=== PATIENT | male | born 1955 | race Caucasian/White ===

== ENCOUNTER → 2020-08-02 11:40 | Outpatient (BNVA) | payer OTHER, SELFPAY | PROVIDERS: PCP Internal Medicine; Visit Provider Anesthesiology | DX: G89.4 Chronic pain syndrome (principal); M96.1 Postlaminectomy syndrome, not elsewhere classified; M48.061 Spinal stenosis, lumbar region without neurogenic claudication; Z79.891 Long term (current) use of opiate analgesic | CPT/HCPCS: 99213; 99214 ==

== ENCOUNTER → 2020-08-30 16:21 | Outpatient (BNVA) | payer OTHER, SELFPAY | PROVIDERS: PCP Internal Medicine; Visit Provider Anesthesiology | DX: G89.4 Chronic pain syndrome (principal); M48.061 Spinal stenosis, lumbar region without neurogenic claudication; M96.1 Postlaminectomy syndrome, not elsewhere classified; Z79.891 Long term (current) use of opiate analgesic | CPT/HCPCS: 99212 ==

== ENCOUNTER → 2020-09-28 10:30 | Outpatient (BNVA) | payer OTHER, SELFPAY | PROVIDERS: PCP Internal Medicine; Visit Provider Anesthesiology | DX: M48.00 Spinal stenosis, site unspecified (principal); M48.061 Spinal stenosis, lumbar region without neurogenic claudication; M96.1 Postlaminectomy syndrome, not elsewhere classified; G89.4 Chronic pain syndrome; F11.90 Opioid use, unspecified, uncomplicated; F17.210 Nicotine dependence, cigarettes, uncomplicated | CPT/HCPCS: 99212 ==

== ENCOUNTER 2020-09-29 07:52 | Day surgery (SDC) | payer OTHER, SELFPAY ==
[2020-09-26 15:01] VITALS: BMI 31.8
--- NOTE | 2020-09-28 12:21 | P.CONAN_ITS ---
Documented by User: Lula Sequeira 09/28/20 12:23 HPI - Anesthesia Eval Consult details Narrative: 65yo M for Lumbar Spinal Cord Simulation Trial [facility] Past Medical History Medical History Back pain with history of spinal surgery Chronic pain syndrome Chronic, continuous use of opioids Numbness and tingling in both hands Postlaminectomy syndrome Spinal stenosis Social History Social History Alcohol intake: current Alcohol intake frequency: a few times a month Alcohol type: beer Smoking Status: Current every day smoker Cigarettes Per Day: 30 Years Smoked: 35 Advance Directives: No Advance Directives Information Provided: No Advance Directives on File: No Meds Allergies Allergy/AdvReac Type Severity Reaction Status Date / Time No Known Allergies Allergy Verified 09/28/20 11:04 Home Medications Medication Instructions Recorded Confirmed Type amlodipine 10 mg tablet 10 mg PO DAILY 08/02/20 09/28/20 History benazepril 20 mg tablet 20 mg PO DAILY 08/02/20 09/28/20 History chlorthalidone 25 mg tablet 25 mg PO DAILY 08/02/20 09/28/20 History metformin 1,000 mg tablet 1,000 mg PO BID 08/02/20 09/28/20 History duloxetine 30 mg capsule,delayed 30 mg PO DAILY PRN 08/30/20 09/28/20 History release Exam Exam Date and Time: September 28, 2020 1221 Height,Weight and Vital Signs: Height 5 ft 11 in Weight 103.419 kg Assessment and Plan Assessment Anesthesia Assessment: Chart Reviewed Documented by User: Vignesh García MD 09/29/20 09:50 [facility] Past Medical History Medical History Back pain with history of spinal surgery Chronic pain syndrome Chronic, continuous use of opioids Numbness and tingling in both hands Postlaminectomy syndrome Spinal stenosis Social History Social History Alcohol intake: current Alcohol intake frequency: a few times a month Alcohol type: beer Smoking Status: Current every day smoker Cigarettes Per Day: 30 Years Smoked: 35 Advance Directives: No Advance Directives Information Provided: No Advance Directives on File: No Meds Allergies Allergy/AdvReac Type Severity Reaction Status Date / Time No Known Allergies Allergy Verified 09/28/20 11:04 Home Medications Medication Instructions Recorded Confirmed Type amlodipine 10 mg tablet 10 mg PO DAILY 08/02/20 09/28/20 History benazepril 20 mg tablet 20 mg PO DAILY 08/02/20 09/28/20 History chlorthalidone 25 mg tablet 25 mg PO DAILY 08/02/20 09/28/20 History metformin 1,000 mg tablet 1,000 mg PO BID 08/02/20 09/28/20 History duloxetine 30 mg capsule,delayed 30 mg PO DAILY PRN 08/30/20 09/28/20 History release Exam Airway Mallampati Class: II TM Dist: >3cm Neck ROM: Full Loose/Missing/Broken Teeth: Yes Heart: ST Lungs: reduced basilar breath sounds Other: ao Assessment and Plan Assessment Anesthesia Assessment: Anesthesia Plan Discussed and Chart Reviewed Final Anesthetic Review NPO: Yes ASA Class: III Final Preanesthetic Review: No Changes in Pt Med Stat, Meds/Allgs Chart Reviewed, Consent Obtained/Reviewed and Anes Risks/Benef Reviewed Patient Risk: Intermediate Procedure Risk: Low Anesthetic Plan Anesthetic Plan: MAC: Disposition: Standard PACU
[2020-09-29 08:03] VITALS: BP 147/88; PULSE 112; RESP 20; TEMP 37; O2SAT 97
[2020-09-29] MEDS: ceFAZolin Sodium/Dextrose,Iso 2 GM/50 ML PIGGYBACK IV (08:34)
[2020-09-29 08:35] LABS: Glucose, Whole Blood 206 mg/dL (60-115)
[2020-09-29] MEDS: Lactated Ringers 1,000 ML 100 ML IVCONT (08:35)
--- NOTE | 2020-09-29 09:15 | FL_ITS ---
EXAMINATION: XR FLUOROSCOPY WITH IMAGES CLINICAL INFORMATION: Spinal stimulator trial COMPARISON: None. TECHNIQUE: Fluoroscopy performed by Dr. Alfredo Bertrand. Fluoroscopy time: 3.9 minutes DAP: 1.40 mGycm2 Images: 4 FINDINGS: There are posterior pleural spinal electrodes inserted from the T12-L1 disc level in the posterior pleural space. The electrodes overlie the lower thoracic spine. Visualized vertebral heights and alignment is normal. There is moderate lateral spondylosis and loss of disc height at T11-T12 disc level. FL/FL guidance in OR IMPRESSION: Fluoroscopy was provided to Dr. Alfredo Bertrand for spinal stimulator trial.
--- NOTE | 2020-09-29 09:21 | MHC.SHP ---
Pre-Procedural Eval Section A The patient is an INPATIENT: No The History & Physical has been completed within 30 days and I have reviewed it.: No Section B Chief Complaint: Lumbar Post Laminectomy Syndrome Details of Present Illness: postlaminectomy stndrome Relevant Family History (Specify if Yes): No Relevant Social History: None Present Medications: see Short Stay Collaborative assessment Medical History: No relevant PMH History of Previous Operations: Relevant previous surgery/procedure and date(s) Allergies: Allergies Allergy/AdvReac Type Severity Reaction Status Date / Time No Known Allergies Allergy Verified 09/28/20 11:04 Review of Systems Sugical H&P ROS: Negative: Constitution, Cardiovascular, Respiratory, Neurological, Psychiatric, Hem-Onc, Allergic/Immunologic, Gastrointestinal, Genitourinary, Musculoskeletal, Integumentary, Endocrine and Eyes/Ears/Nose/Throat Exam Surgical H&P Exam: Normal: HEENT, Normal: Heart, Normal: Lungs, Normal: Extremities, Normal: Abdomen, Normal: Skin and Normal: Neurological Plan Diagnosis/Plan: Unchanged Patient has been examined and remains a candidate for the planned procedure
[2020-09-29 10:55] VITALS: BP 160/90; PULSE 113; RESP 20; TEMP 37.1; O2SAT 93
[2020-09-29 11:10] VITALS: BP 146/89; PULSE 107; RESP 18; O2SAT 100
[2020-09-29] MEDS: Acetaminophen 325 MG TABLET 975 MG PO (11:15)
[2020-09-29 11:25] VITALS: BP 157/92; PULSE 101; RESP 18; O2SAT 100
--- NOTE | 2020-09-29 16:12 | W.PM.OPN ---
Operative Note Operative Note Date of Service: 09/29/20 Narrative: Narrative: Mr Dempsey is very pleasant 65 years old man who came today into the operating room for trial of spinal cord stimulator for the treatment of post laminectomy syndrome. Preoperatively the patient received 2 grams of Cefasoline approximately 30 minutes before procedure. After obtaining informed consent patient was brought to the operating room, HE was positioned prone on operating table, [place] [employer] monitors were applied and patient was deeply sedated. Time-out was performed delineating correct site, side, the nature of the procedure, patient's allergy, preoperative antibiotic if needed. All operating room staff was participating in OR time-out procedure. Patient's entire back was prepped with ChloraPrep twice and draped with full body laparoscopy drape. Sterilely draped C-arm was brought over operating field and square picture of T11-T12 L1 L2 vertebrae as were demonstrated on the screen. Attention FIRST was concentrated on the L1-L2 epidural interspace. The location of the projection of the right pedicle center of the L3 vertebra was found on the skin using C-arm. This location was injected with mixture of lidocaine 2% and Marcaine 0.5% 5 cc. After that 11 blade was used to make a perla on the skin. 10 cm 14 gauge Tuohy introducer epidural needle was inserted through the perla and advanced to L1-L2 epidural interspace. The advancement of the needle was performed on anterior posterior and lateral views. Guitar wire and loss of resistance technique were used to locate epidural space. When guitar wire was spread in the epidural fashion, epidural lead was inserted through the skin and it was advanced to T8 position SLIGHTLY RIGHT to THE MIDLINE. After that location of the projection of the LEFT pedicle center of the vertebra was found on the skin using C-arm. This location was injected with mixture of lidocaine 2% and Marcaine 0.5% 5 cc. After that 11 blade was used to make a perla on the skin. 10 cm 14 gaugeTuohy introducer epidural needle was inserted through the perla and advanced toL1-L2 epidural interspace. The advancement of the needle was performed on anterior posterior and lateral views. Guitar wire and loss of resistance technique were used to locate epidural space. When guitar wire was spread in the epidural fashion, epidural lead was inserted through the needle and attempt was made to advance it to the epidural space.This maneuver was proven to be difficult and the Touhy needle was removed and replaced with the blue epidural introducer. After that advancement of the epidural lead went is here and I was able to advance it to the T8 epidural space slightly left to the midline. At this moment patient was awaken and the epidural leads were connected to the testing device. The patient reported stimulation corresponding to his pain. After satisfactory position of the leads were established the needles were withdrawn, the stylette wires were removed from the epidural leads. The anchoring devices were dislodged on the leads and advanced to the level of the skin. The anchoring devices were sutured with two 0-0 silk sutures to the skin of the patient. The leads were connected to testing device. Bacitracin ointment was applied to the entrance point of bilateral needles. Sterile dressing was applied to the patient's back. The testing device was also glued to the patient's back. Upon completion of the procedure the patient was taken to PACU where HE recovered and UNEVENTFULLY, HE WENT HOME WITHOUT IMMEDIATE COMPLICATIONS. The patient will be given prescription for small dose Percocets for postoperative pain control , he will continue to use ANTIBIOTICS:Keflex for the next 6 days while she is on the trial.
== END 2020-09-29 11:47 | disposition home or self-care (01) ==
PROVIDERS: PCP Internal Medicine; Visit Provider Anesthesiology
PROC: (CPT 63650; principal; 2020-09-29 09:10)
DX: M96.1 Postlaminectomy syndrome, not elsewhere classified (principal); G89.4 Chronic pain syndrome; M48.061 Spinal stenosis, lumbar region without neurogenic claudication; G83.4 Cauda equina syndrome; F11.90 Opioid use, unspecified, uncomplicated; Z79.899 Other long term (current) drug therapy
CPT/HCPCS: 63650 ×2; 82947; C1778; C1897; J0690; J2250

== ENCOUNTER → 2020-10-05 13:20 | Outpatient (BNVA) | payer OTHER, SELFPAY | PROVIDERS: PCP Internal Medicine; Referring Provider Internal Medicine; Visit Provider Anesthesiology | DX: M48.061 Spinal stenosis, lumbar region without neurogenic claudication (principal); M96.1 Postlaminectomy syndrome, not elsewhere classified; G89.4 Chronic pain syndrome; F11.90 Opioid use, unspecified, uncomplicated; F17.210 Nicotine dependence, cigarettes, uncomplicated | CPT/HCPCS: 99212 ==

== ENCOUNTER → 2020-10-25 08:01 | Outpatient (BNVA) | payer OTHER, SELFPAY | PROVIDERS: PCP Internal Medicine; Visit Provider Anesthesiology | DX: M48.061 Spinal stenosis, lumbar region without neurogenic claudication (principal); M96.1 Postlaminectomy syndrome, not elsewhere classified; G89.4 Chronic pain syndrome; F11.90 Opioid use, unspecified, uncomplicated | CPT/HCPCS: 99212 ==

== ENCOUNTER → 2020-11-23 10:27 | Outpatient (BNVA) | payer OTHER, SELFPAY | PROVIDERS: PCP Internal Medicine; Visit Provider Anesthesiology | DX: M48.061 Spinal stenosis, lumbar region without neurogenic claudication (principal); M96.1 Postlaminectomy syndrome, not elsewhere classified; G89.4 Chronic pain syndrome; F11.90 Opioid use, unspecified, uncomplicated | CPT/HCPCS: 99212 ==

== ENCOUNTER → 2020-12-21 08:39 | Outpatient (BNVA) | payer OTHER, SELFPAY | PROVIDERS: PCP Internal Medicine; Visit Provider Anesthesiology | DX: M48.061 Spinal stenosis, lumbar region without neurogenic claudication (principal); M96.1 Postlaminectomy syndrome, not elsewhere classified; G89.4 Chronic pain syndrome; F11.90 Opioid use, unspecified, uncomplicated; Z79.899 Other long term (current) drug therapy | CPT/HCPCS: 99212 ==

== ENCOUNTER → 2021-01-17 10:26 | Outpatient (BNVA) | payer OTHER, SELFPAY | PROVIDERS: PCP Internal Medicine; Visit Provider Anesthesiology | DX: M48.061 Spinal stenosis, lumbar region without neurogenic claudication (principal); M96.1 Postlaminectomy syndrome, not elsewhere classified; G89.4 Chronic pain syndrome; F11.90 Opioid use, unspecified, uncomplicated | CPT/HCPCS: 99212 ==

== ENCOUNTER → 2021-02-12 08:41 | Outpatient (BNVA) | payer OTHER, SELFPAY | PROVIDERS: PCP Internal Medicine; Visit Provider Anesthesiology | DX: M48.061 Spinal stenosis, lumbar region without neurogenic claudication (principal); M96.1 Postlaminectomy syndrome, not elsewhere classified; G89.4 Chronic pain syndrome; F11.90 Opioid use, unspecified, uncomplicated | CPT/HCPCS: 99212 ==

== ENCOUNTER 2021-02-16 08:46 | Day surgery (SDC) | payer OTHER, SELFPAY ==
--- NOTE | 2021-02-15 12:06 | HO.ANESPROP2 ---
Documented by User: Lula Sequeira 02/15/21 12:07 HPI - Anesthesia Eval Consult details Narrative: 65yo M for Lumbar Spinal Stimulation Implant s/p Lumbar Spinal Stimulation Trial with MAC 09/2020 PRN opioids daily PMFSH Active Problems Active Problems: All Active Problems (Updated 09/26/20 @ 14:58 by Lisa Kirkland) Chronic, continuous use of opioids (Acute) Chronic pain syndrome (Acute) Postlaminectomy syndrome (Acute) Spinal stenosis (Acute) Past Medical History Medical History Back pain with history of spinal surgery Chronic pain syndrome Chronic, continuous use of opioids Diabetes Heavy smoker HTN (hypertension) Numbness and tingling in both hands Postlaminectomy syndrome Spinal stenosis Social History Social History Alcohol intake: current Alcohol intake frequency: a few times a week Alcohol type: beer Smoking Status: Heavy tobacco smoker Cigarettes Per Day: 30 Years Smoked: 50 Smoked in Last 30 Days: Yes Advance Directives: No Advance Directives Information Provided: Yes Meds Allergies Allergy/AdvReac Type Severity Reaction Status Date / Time No Known Allergies Allergy Verified 01/17/21 10:41 Home Medications Medication Instructions Recorded Confirmed Last Taken Type amlodipine 10 mg tablet 10 mg PO DAILY 08/02/20 02/12/21 02/16/21 History benazepril 20 mg tablet 20 mg PO DAILY 08/02/20 02/12/21 02/16/21 History chlorthalidone 25 mg tablet 25 mg PO DAILY 08/02/20 02/12/21 02/16/21 History metformin 1,000 mg tablet 1,000 mg PO BID 08/02/20 02/12/21 02/16/21 History duloxetine 30 mg capsule,delayed 30 mg PO DAILY PRN 08/30/20 02/12/21 Unknown History release Exam Exam Date and Time: February 15, 20211205 Assessment and Plan Assessment Anesthesia Assessment: Chart Reviewed Documented by User: Tricia Cuello 02/16/21 10:03 [facility] Past Medical History Medical History Back pain with history of spinal surgery Chronic pain syndrome Chronic, continuous use of opioids Diabetes Heavy smoker HTN (hypertension) Numbness and tingling in both hands Postlaminectomy syndrome Spinal stenosis Family History Family history of problems with anesthesia: No Surgical History History of Problems with Anesthesia: No Social History Social History Alcohol intake: current Alcohol intake frequency: a few times a week Alcohol type: beer Smoking Status: Heavy tobacco smoker Cigarettes Per Day: 30 Years Smoked: 50 Smoked in Last 30 Days: Yes Advance Directives: No Advance Directives Information Provided: Yes Meds Allergies Allergy/AdvReac Type Severity Reaction Status Date / Time No Known Allergies Allergy Verified 01/17/21 10:41 Home Medications Medication Instructions Recorded Confirmed Last Taken Type amlodipine 10 mg tablet 10 mg PO DAILY 08/02/20 02/12/21 02/16/21 History benazepril 20 mg tablet 20 mg PO DAILY 08/02/20 02/12/21 02/16/21 History chlorthalidone 25 mg tablet 25 mg PO DAILY 08/02/20 02/12/21 02/16/21 History metformin 1,000 mg tablet 1,000 mg PO BID 08/02/20 02/12/21 02/16/21 History duloxetine 30 mg capsule,delayed 30 mg PO DAILY PRN 08/30/20 02/12/21 Unknown History release Exam Height,Weight and Vital Signs: Vital Signs Temp Pulse Resp BP Pulse Ox 02/16/21 09:39 104 H 02/16/21 09:36 98.6 F 107 H 16 122/90 H 91 L Lab Results 02/16/21 Range/Units 09:06 POC Glucose 181 H (60-115) mg/dL Narrative Narrative: Patient wheezy on initial exam. Respiratory treatment ordered. Airway Mallampati Class: II TM Dist: >3cm Neck ROM: Full Loose/Missing/Broken Teeth: Yes (Broken) Heart: RRR Lungs: CTAB Assessment and Plan Assessment Anesthesia Assessment: Anesthesia Plan Discussed and Chart Reviewed Final Anesthetic Review NPO: Yes ASA Class: III Final Preanesthetic Review: No Changes in Pt Med Stat, Meds/Allgs Chart Reviewed, Consent Obtained/Reviewed and Anes Risks/Benef Reviewed Patient Risk: Intermediate Procedure Risk: Low Assessment/Block/Sedation in SS: Assess/Block/Sedation-SS Anesthetic Plan Anesthetic Plan: MAC: Disposition: Standard PACU
--- NOTE | ~2021-02-16 | FL_ITS ---
EXAMINATION: XR FLUOROSCOPY WITH IMAGES CLINICAL INFORMATION: Lumbar spinal stimulator implant TECHNIQUE: Fluoroscopy performed by Dr. Bertrand. Fluoroscopy time: 3 minutes DAP: 78.1 mGycm2 Images: 3 FINDINGS: Intraoperative fluoroscopy was provided for use by Dr. Bertrand. A radiologist was not present during imaging. On the images, spinal stimulator leads are projected in the region of the thoracic spine. Today's dictation is only for administrative purposes to document intraoperative fluoroscopy. FL/FL guidance in OR IMPRESSION: Intraoperative fluoroscopy provided for use by Dr. Bertrand. Please see procedure note for details findings.
[2021-02-16 09:09] LABS: Glucose, Whole Blood 181 mg/dL (60-115)
[2021-02-16 09:32] VITALS: BMI 31.1
[2021-02-16 09:36] VITALS: BP 122/90; PULSE 107; RESP 16; TEMP 37; O2SAT 91
[2021-02-16 09:39] VITALS: PULSE 104; O2SAT 97
[2021-02-16] MEDS: Albuterol Sulfate (0.083%) 2.5 MG/3 ML VIAL.NEB INHALE (09:39)
[2021-02-16] MEDS: Lactated Ringers 1,000 ML 100 ML IVCONT (09:55)
[2021-02-16 10:40] VITALS: O2SAT 98
--- NOTE | 2021-02-16 10:43 | P.HPSUR_ITS ---
Pre-Procedural Eval Section A The patient is an INPATIENT: No Changes since office visit: Yes Patient answered all questions The History & Physical has been completed within 30 days and I have reviewed it.: No Section B Chief Complaint: Spinal Stenosis w/ Neurogenic Claudication status Details of Present Illness: as above Relevant Family History (Specify if Yes): No Relevant Social History: None Present Medications: see Short Stay Collaborative assessment Medical History: No relevant PMH History of Previous Operations: Relevant previous surgery/procedure and date(s) Allergies: Allergies Allergy/AdvReac Type Severity Reaction Status Date / Time No Known Allergies Allergy Verified 01/17/21 10:41 Review of Systems Sugical H&P ROS: Negative: Constitution, Cardiovascular, Respiratory, Neurological, Psychiatric, Hem-Onc, Allergic/Immunologic, Gastrointestinal, Genitourinary, Musculoskeletal, Integumentary, Endocrine and Eyes/Ears/ Nose/Throat Exam Surgical H&P Exam: Normal: HEENT, Normal: Heart, Normal: Lungs, Normal: Extremities, Normal: Abdomen, Normal: Skin and Normal: Neurological Plan Diagnosis/Plan: Unchanged I have reviewed the history and physical and performed a pertinent physical examination on my patient. No changes have occurred unless specified.
--- NOTE | 2021-02-16 10:43 | PM.OP ---
Brief Operative Note Date of Service: 02/16/21 Pre-op diagnosis: Moderate to severe spinal stenosis, spondylosis of lumbar spine. Post-op diagnosis: same Procedure: Implantation of spinal cord stimulator [employer]. Implants: To epidural leads, alpha [employer] battery Surgeon: Alfredo Bertrand MD Anesthesia: MAC Estimated blood loss (mL): 20 Pathology: none sent Condition: stable Disposition: PACU
--- NOTE | 2021-02-16 10:45 | P.OP_ITS ---
Operative Note Operative Note Date of Service: 02/16/21 Narrative: Mr. Dempsey is very pleasant 51 years old gentleman who came today into the operating room for implantation of spinal cord stimulator for the treatment of pain related to degenerative disc disease and chronic pain syndrome. He had successful trial of spinal cord stimulation. Preoperatively patient received 2 g cefazolin _approximately 30 minutes before the procedure. After obtaining informed consent patient was brought to the operating room, he was positioned prone on operating table, [place] [employer] monitors were applied and patient was deeply sedated. Time-out was performed delineating correct site, side, the nature of the procedure, patient's allergy, preoperative antibiotic. All operating room staff was participating in OR time-out procedure. Patient's entire back was prepped with ChloraPrep twice and draped with full body drape including Ioban film. Sterilely draped C-arm was brought over operating field and square picture of T12, L1, L2 vertebrae as were demonstrated on the screen. THE PROJECTION OF L2-L3 SPINAL PROCESSES TO THE SKIN WERE INFILTRATED WITH LIDOCAINE 2% MIXED WITH BUPIVACAINE 0.5%. Six CM LONG VERTICAL INCISION using a 10 blade scalpel WAS PERFORMED IN STRICT MIDLINE VERTICAL FASHION. THOROUGH HEMOSTASIS WAS PERFORMED using electrocautery.. Thorough tissue dissections was performed until prevertebral fascia was freed from overlying tissues. Attention FIRST was concentrated on the RIGHT T12-L1 epidural interspace. The location of the projection of the right pedicle center of the L2 vertebra was found on the prevertebral fascia using C-arm. This location was injected with mixture of lidocaine 2% and Marcaine 0.5% 5 cc in approximate direction of needle advancement.. After that 10 cm 14 gauge straight introducer epidural needle was inserted through the fascia and advanced toward T12-L1 epidural interspace. The advancement of the needle was performed on anterior posterior and lateral views. Guitar wire and loss of resistance technique were used to locate epidural space. When guitar wire was spread in the epidural fashion, epidural lead was inserted through the skin and it was advanced to T8 position POSTERIOR EPIDURAL SPACE practically to the midline. After that location of the projection of the LEFT pedicle center of the L3 vertebra was found -using C-arm. This location was injected with mixture of lidocaine 2% and Marcaine 0.5% 5 cc.. . 10 cm 14 gauge curved introducer epidural needle was inserted through the fascia and advanced to T12-L1 epidural interspace. The advancement of the needle was performed on anterior posterior and lateral views. Guitar wire and loss of resistance technique were used to locate epidural space. When guitar wire was spread in the epidural fashion, epidural lead was inserted through the needle and advanced to the T9 POSTERIOR EPIDURAL SPACE SLIGHTLY left to the existing line .. THE LOCATION OF BOTH LEADS WAS VERIFIED ON ANTERIOR POSTERIOR AND LATERAL VIEWS. At this moment the patient was awaken and testing was performed. The patient responded well with both locations of the epidural leads. He reported stimulation in the projection of the . It corresponding to his pain. After satisfactory position of the leads were established the needles were withdrawn, the stylette wires were removed from the epidural leads. The anchoring devices were dislodged on the leads and advanced to the level of the skin. The anchoring devices were advanced along the epidural leads and dislodged and epidural leads at the level of prevertebral fascia. They were sutured to prevertebral fascia using special suturing device from [employer] per each anchoring device. The fixating screws was fixed until 3 clicks were heard on each anchoring device. After that the wound was irrigated with copious amount of Vancomycin containing normal saline and packed with Vancomycin soaked 4 x 4. After that attention was concentrated on the right upper buttock of the patient where he wanted battery to be implanted. 6 cm long horizontal incision was performed 3 cm below the lowest portion of the right iliac crest. Subcutaneous pocket was formed not deeper than 2 cm under the skin using dull dissection and electrocautery dissection. Thorough hemostasis was obtained. The wound was irrigated with copious amount of Vancomycin contained normal saline. Tunneling device was used to connect the 2 wounds and epidural leads were dislodged into side wound. They were connected to the [employer] battery and locked with a locking screwdriver device. Impedance was checked and appeared to be satisfactory. After that the anchoring sutures ethibond were applied in the most superior medial and most superior lateral corners of the wound. After that they were connected to the anchoring holes on the body of the battery, the epidural leads were gathered behind the body of the-battery, the battery and the leads were inserted into the pocket wound and after that the anchoring 2 sutures were tied. The wounds were irrigated again with Vancomycin containing normal saline, thorough hemostasis was checked, and after that the wounds were closed using 0 Vicryl. After that the skin edges wore approximated using 2 0 Vicryl, lili were applied to the wounds at the level of the skin. Bacitracin ointment was applies to the level of the lili and sterile dressings were applied to the staple lines. Medipore Tape was applied to hold the dressing to the patient's skin. Abdominal binder to wear was provided to the patient. At this moment patient was awaken and transferred to the bed. He was recovering uneventfully in PACU.
[2021-02-16 13:17] VITALS: BP 132/81; PULSE 91; RESP 12; TEMP 36.6; O2SAT 92
[2021-02-16 13:32] VITALS: BP 131/82; PULSE 79; RESP 18; TEMP 36.6; O2SAT 96
== END 2021-02-16 15:03 | disposition home or self-care (01) ==
LOC: HO.SSS 08:46
PROVIDERS: PCP Internal Medicine; Visit Provider Anesthesiology
PROC: (CPT 63685; principal; 2021-02-16 09:50)
DX: M48.061 Spinal stenosis, lumbar region without neurogenic claudication (principal); M51.36 Other intervertebral disc degeneration, lumbar region; M96.1 Postlaminectomy syndrome, not elsewhere classified; G89.4 Chronic pain syndrome; Z79.891 Long term (current) use of opiate analgesic; I10 Essential (primary) hypertension; E11.9 Type 2 diabetes mellitus without complications; Z79.84 Long term (current) use of oral hypoglycemic drugs; Z79.899 Other long term (current) drug therapy; F17.210 Nicotine dependence, cigarettes, uncomplicated
CPT/HCPCS: 63685; 63650 ×2; 82947; 94640; C1713; C1778; C1787; C1820; J0690; J1100; J2250; J2370; J2405; J3010; J3370

== ENCOUNTER → 2021-02-22 11:25 | Outpatient (BNVA) | payer OTHER, SELFPAY | PROVIDERS: PCP Internal Medicine; Visit Provider Anesthesiology | DX: M48.061 Spinal stenosis, lumbar region without neurogenic claudication (principal); M96.1 Postlaminectomy syndrome, not elsewhere classified; G89.4 Chronic pain syndrome; F11.90 Opioid use, unspecified, uncomplicated | CPT/HCPCS: 99212 ==

== ENCOUNTER → 2021-03-01 11:01 | Outpatient (BNVA) | payer OTHER, SELFPAY | PROVIDERS: PCP Internal Medicine; Visit Provider Anesthesiology | DX: M48.061 Spinal stenosis, lumbar region without neurogenic claudication (principal); M96.1 Postlaminectomy syndrome, not elsewhere classified; G89.4 Chronic pain syndrome; F11.90 Opioid use, unspecified, uncomplicated | CPT/HCPCS: 99212 ==

== ENCOUNTER → 2021-03-21 10:41 | Outpatient (BNVA) | payer OTHER, SELFPAY | PROVIDERS: PCP Internal Medicine; Visit Provider Anesthesiology | DX: M48.061 Spinal stenosis, lumbar region without neurogenic claudication (principal); M96.1 Postlaminectomy syndrome, not elsewhere classified; G89.4 Chronic pain syndrome; F11.90 Opioid use, unspecified, uncomplicated; Z79.899 Other long term (current) drug therapy | CPT/HCPCS: 99212 ==

== ENCOUNTER → 2021-04-19 09:41 | Outpatient (BNVA) | payer OTHER, SELFPAY | PROVIDERS: Visit Provider Anesthesiology | DX: M48.061 Spinal stenosis, lumbar region without neurogenic claudication (principal); M96.1 Postlaminectomy syndrome, not elsewhere classified; G89.4 Chronic pain syndrome; F11.90 Opioid use, unspecified, uncomplicated | CPT/HCPCS: 99212 ==

== ENCOUNTER → 2021-05-18 09:01 | Outpatient (BNVA) | payer OTHER, SELFPAY | PROVIDERS: Visit Provider Nurse Practitioner Family | DX: M48.061 Spinal stenosis, lumbar region without neurogenic claudication (principal); M96.1 Postlaminectomy syndrome, not elsewhere classified; G89.4 Chronic pain syndrome; F11.90 Opioid use, unspecified, uncomplicated | CPT/HCPCS: 99212 ==

== ENCOUNTER → 2021-06-20 09:47 | Outpatient (BNVA) | payer OTHER, SELFPAY | PROVIDERS: PCP Internal Medicine; Visit Provider Anesthesiology | DX: M48.061 Spinal stenosis, lumbar region without neurogenic claudication (principal); M96.1 Postlaminectomy syndrome, not elsewhere classified; G89.4 Chronic pain syndrome; F11.90 Opioid use, unspecified, uncomplicated; Z79.899 Other long term (current) drug therapy | CPT/HCPCS: 99212 ==

== ENCOUNTER → 2021-07-18 10:12 | Outpatient (BNVA) | payer OTHER, SELFPAY | PROVIDERS: PCP Internal Medicine; Visit Provider Anesthesiology | DX: Z51.81 Encounter for therapeutic drug level monitoring (principal); M48.061 Spinal stenosis, lumbar region without neurogenic claudication; M96.1 Postlaminectomy syndrome, not elsewhere classified; G89.4 Chronic pain syndrome; F11.90 Opioid use, unspecified, uncomplicated | CPT/HCPCS: 99212 ==

== ENCOUNTER → 2021-08-29 09:53 | Outpatient (BNVA) | payer OTHER, SELFPAY | PROVIDERS: PCP Internal Medicine; Visit Provider Anesthesiology | DX: Z51.81 Encounter for therapeutic drug level monitoring (principal); M48.061 Spinal stenosis, lumbar region without neurogenic claudication; M96.1 Postlaminectomy syndrome, not elsewhere classified; G89.4 Chronic pain syndrome; F11.90 Opioid use, unspecified, uncomplicated | CPT/HCPCS: 99212 ==

== ENCOUNTER → 2021-09-26 09:01 | Outpatient (BNVA) | payer OTHER, SELFPAY | PROVIDERS: PCP Internal Medicine; Visit Provider Anesthesiology | DX: Z51.81 Encounter for therapeutic drug level monitoring (principal); M48.061 Spinal stenosis, lumbar region without neurogenic claudication; M96.1 Postlaminectomy syndrome, not elsewhere classified; G89.4 Chronic pain syndrome; F11.20 Opioid dependence, uncomplicated | CPT/HCPCS: 99212 ==

== ENCOUNTER → 2021-10-25 10:45 | Outpatient (BNVA) | payer OTHER, SELFPAY | PROVIDERS: PCP Internal Medicine; Visit Provider Anesthesiology | DX: Z51.81 Encounter for therapeutic drug level monitoring (principal); M48.061 Spinal stenosis, lumbar region without neurogenic claudication; M96.1 Postlaminectomy syndrome, not elsewhere classified; G89.4 Chronic pain syndrome; F11.20 Opioid dependence, uncomplicated | CPT/HCPCS: 99212 ==

== ENCOUNTER → 2021-11-22 10:15 | Outpatient (BNVA) | payer OTHER, SELFPAY | PROVIDERS: PCP Internal Medicine; Visit Provider Anesthesiology | DX: Z51.81 Encounter for therapeutic drug level monitoring (principal); F11.20 Opioid dependence, uncomplicated | CPT/HCPCS: 99212 ==

== ENCOUNTER → 2021-12-19 08:44 | Outpatient (BNVA) | payer OTHER, SELFPAY | PROVIDERS: PCP Internal Medicine; Visit Provider Anesthesiology | DX: M96.1 Postlaminectomy syndrome, not elsewhere classified (principal); M48.061 Spinal stenosis, lumbar region without neurogenic claudication; G89.4 Chronic pain syndrome; G83.4 Cauda equina syndrome; E11.9 Type 2 diabetes mellitus without complications; I10 Essential (primary) hypertension; F17.210 Nicotine dependence, cigarettes, uncomplicated; F11.90 Opioid use, unspecified, uncomplicated; Z96.82 Presence of neurostimulator | CPT/HCPCS: 99212 ==

== ENCOUNTER → 2022-01-23 10:21 | Outpatient (BNVA) | payer OTHER, SELFPAY | PROVIDERS: PCP Internal Medicine; Visit Provider Anesthesiology | DX: Z51.81 Encounter for therapeutic drug level monitoring (principal); F11.20 Opioid dependence, uncomplicated | CPT/HCPCS: 99211 ==

== ENCOUNTER → 2022-02-20 10:12 | Outpatient (BNVA) | payer OTHER, SELFPAY | PROVIDERS: PCP Internal Medicine; Visit Provider Anesthesiology | DX: Z13.89 Encounter for screening for other disorder (principal) ==

== ENCOUNTER → 2022-03-26 12:37 | Outpatient (BNVA) | payer OTHER, SELFPAY | PROVIDERS: PCP Internal Medicine; Visit Provider Anesthesiology | DX: Z51.81 Encounter for therapeutic drug level monitoring (principal); F11.20 Opioid dependence, uncomplicated | CPT/HCPCS: 99211 ==

== ENCOUNTER → 2022-05-29 08:58 | Outpatient (BNVA) | payer OTHER, SELFPAY | PROVIDERS: PCP Internal Medicine; Visit Provider Anesthesiology | DX: M96.1 Postlaminectomy syndrome, not elsewhere classified (principal); M48.061 Spinal stenosis, lumbar region without neurogenic claudication; G83.4 Cauda equina syndrome; G89.4 Chronic pain syndrome; F11.90 Opioid use, unspecified, uncomplicated | CPT/HCPCS: 99212 ==

== ENCOUNTER → 2022-06-26 10:05 | Outpatient (BNVA) | payer OTHER, SELFPAY | PROVIDERS: PCP Internal Medicine; Visit Provider Anesthesiology | DX: Z51.81 Encounter for therapeutic drug level monitoring (principal); F11.20 Opioid dependence, uncomplicated | CPT/HCPCS: 99211 ==

== ENCOUNTER → 2022-07-31 11:35 | Outpatient (BNVA) | payer OTHER, SELFPAY | PROVIDERS: PCP Internal Medicine; Visit Provider Anesthesiology | DX: Z51.81 Encounter for therapeutic drug level monitoring (principal); F11.20 Opioid dependence, uncomplicated; M48.061 Spinal stenosis, lumbar region without neurogenic claudication; M96.1 Postlaminectomy syndrome, not elsewhere classified; G89.4 Chronic pain syndrome | CPT/HCPCS: 99212 ==

== ENCOUNTER → 2022-08-28 10:00 | Outpatient (BNVA) | payer OTHER, SELFPAY | PROVIDERS: PCP Internal Medicine; Visit Provider Anesthesiology | DX: Z51.81 Encounter for therapeutic drug level monitoring (principal); Z79.899 Other long term (current) drug therapy | CPT/HCPCS: 99211 ==

== ENCOUNTER → 2022-09-25 10:01 | Outpatient (BNVA) | payer OTHER, SELFPAY | PROVIDERS: PCP Internal Medicine; Visit Provider Anesthesiology | DX: Z51.81 Encounter for therapeutic drug level monitoring (principal); F11.20 Opioid dependence, uncomplicated; M96.1 Postlaminectomy syndrome, not elsewhere classified; M48.061 Spinal stenosis, lumbar region without neurogenic claudication; G89.4 Chronic pain syndrome | CPT/HCPCS: 99212 ==

== ENCOUNTER → 2022-10-23 10:12 | Outpatient (BNVA) | payer OTHER, SELFPAY | PROVIDERS: PCP Internal Medicine; Visit Provider Anesthesiology | DX: M48.061 Spinal stenosis, lumbar region without neurogenic claudication (principal); M96.1 Postlaminectomy syndrome, not elsewhere classified; G89.4 Chronic pain syndrome; F11.20 Opioid dependence, uncomplicated | CPT/HCPCS: 99212 ==

== ENCOUNTER → 2022-11-20 10:01 | Outpatient (BNVA) | payer OTHER, SELFPAY | PROVIDERS: PCP Internal Medicine; Visit Provider Anesthesiology | DX: Z51.81 Encounter for therapeutic drug level monitoring (principal); F11.20 Opioid dependence, uncomplicated | CPT/HCPCS: 99211 ==

== ENCOUNTER → 2022-12-25 10:14 | Outpatient (BNVA) | payer OTHER, SELFPAY | PROVIDERS: PCP Internal Medicine; Visit Provider Anesthesiology | DX: Z51.81 Encounter for therapeutic drug level monitoring (principal); M48.061 Spinal stenosis, lumbar region without neurogenic claudication; M96.1 Postlaminectomy syndrome, not elsewhere classified; G89.4 Chronic pain syndrome; F11.20 Opioid dependence, uncomplicated | CPT/HCPCS: 99212 ==

== ENCOUNTER → 2023-01-22 09:57 | Outpatient (BNVA) | payer OTHER, SELFPAY | PROVIDERS: PCP Internal Medicine; Visit Provider Anesthesiology | DX: Z51.81 Encounter for therapeutic drug level monitoring (principal); Z79.899 Other long term (current) drug therapy | CPT/HCPCS: 99211 ==

== ENCOUNTER → 2023-02-24 10:26 | Outpatient (BNVA) | payer OTHER, SELFPAY | PROVIDERS: PCP Internal Medicine; Visit Provider Anesthesiology | DX: M96.1 Postlaminectomy syndrome, not elsewhere classified (principal); M48.061 Spinal stenosis, lumbar region without neurogenic claudication; G89.4 Chronic pain syndrome; Z79.891 Long term (current) use of opiate analgesic | CPT/HCPCS: 99212 ==

== ENCOUNTER → 2023-03-24 11:42 | Outpatient (BNVA) | payer OTHER, SELFPAY | PROVIDERS: PCP Internal Medicine; Visit Provider Anesthesiology | DX: Z51.81 Encounter for therapeutic drug level monitoring (principal); F11.20 Opioid dependence, uncomplicated | CPT/HCPCS: 99211 ==

== ENCOUNTER → 2023-04-21 10:55 | Outpatient (BNVA) | payer OTHER, SELFPAY | PROVIDERS: PCP Internal Medicine; Visit Provider Anesthesiology | DX: M96.1 Postlaminectomy syndrome, not elsewhere classified (principal); M48.061 Spinal stenosis, lumbar region without neurogenic claudication; G89.4 Chronic pain syndrome; Z79.891 Long term (current) use of opiate analgesic | CPT/HCPCS: 99212 ==

== ENCOUNTER → 2023-05-19 09:51 | Outpatient (BNVA) | payer OTHER, SELFPAY | PROVIDERS: PCP Anesthesiology; Visit Provider Anesthesiology | DX: Z79.891 Long term (current) use of opiate analgesic (principal) | CPT/HCPCS: 99211 ==

== ENCOUNTER 2023-06-16 09:57 | Outpatient (AMB) | payer OTHER, SELFPAY ==
--- NOTE | 2023-06-16 09:57 | A.OFFVIS_ITS ---
Intake Vital Signs 06/16/23 10:04 Height 6 ft Weight 209 lb BMI 28.3 BP 130/80 Blood Pressure Location Lt brachial Position Sitting Respiration 16 Pulse 83 Pulse Source Pulse Oximeter Pulse Oximetry (%) 95 Oxygen Delivery Method Room Air Intake Visit Reasons: PILL COUNT Intake Note: patient comes in for a pill count oxycodone. Allergies No Known Allergies Allergy (Verified 06/16/23 10:07) HPI HPI Comments History of Present Illness Details Remi is a pleasant 67 year old male who is suffering from postlaminectomy syndrome.?He is here for a pill count. He is on chronic opioid program. He is supposed to have 9 pills in his possession and has 9 pills.?. This demonstrates a responsible attitude in regards to the opioid regimen. He states he has an increased ability to perform activities of daily living, interact socially and be more functional, with no noted side effects.? He denies constipation, he denies itching nausea and or vomiting.? He reports today pain 7-8 /10. He explained these pain increase to the fact that he went fishing and since then he has pain in the back is hurting him more. I recommended him to try NSAIDs on the clock not [id number] ibuprofen q.6 hours for the next 10-14 days and then stop. He reports difficulty with obtaining opioid medications. He requests me to send his medications [facility] to [facility]. I told him that I will send it right now due on 06/19/2023 he needs to call his pharmacy and verify if he had a half indications for him on that date. Denies constipation, sedation, nausea, pruritis, dizziness or urinary retention.? ?He received [employer] spinal cord stimulation in the past.? He reports that he is using spinal cord stimulator.? He has hide or skin buffer was replaced and now he is able to appropriately charge she has device. Prior: ? H/o multiple injections in [employer] [facility] in the lower back. He has a severe stenosis in L4-5 area due to postlaminectomy changes at that area. postlaminectomy syndrome, he has compression of cauda equina by MRI. lower back and mostly left leg pain all the way down to his calf. History of injury in 1986 history of laminectomy in 1986 no hardware in the back. ? He has since multiple injections, medication trials, and rounds of PT without benefit. He was referred to Neurosurgery. He saw Dr. Melgoza in 07/28/[address] Melgoza suggested conservative treatment including spinal cord stimulation, given that additional surgical intervention would not necessarily improve his symptoms.. [facility] Medical History Back pain with history of spinal surgery Chronic pain syndrome Chronic, continuous use of opioids Diabetes Heavy smoker HTN (hypertension) Numbness and tingling in both hands Postlaminectomy syndrome Spinal stenosis Social History Alcohol intake: current Alcohol intake frequency: a few times a week Alcohol type: beer Cigarettes Per Day: 30 Years Smoked: 50 Review of Systems Const All systems reviewed & are unremarkable except as noted in HPI and below Physical Exam Vital Signs: Last Vital Signs Pulse 83 06/16/23 10:04 Resp 16 06/16/23 10:04 BP 130/80 06/16/23 10:04 Pulse Ox 95 06/16/23 10:04 Oxygen Delivery Method Room Air 06/16/23 10:04 BMI result Body Mass Index 28.3 Const General: cooperative, comfortable, alert and well groomed Nutritional Appearance: obese Orientation/consciousness: patient oriented x3 HEENT Head: Yes normocephalic and Yes atraumatic Ears: hearing grossly normal bilaterally Neck Neck: Yes normal visual inspection and Yes no JVD Resp Effort & Inspection: normal respiratory effort, able to speak in complete sentences and no audible wheezes Cardio Jugular venous distension: no JVD Back/Spine/Pelvis Other: Tenderness of palpation on paraspinal spinal region lumbar spine. SLR is negative bilaterally, percussion is positive for pain in L3 L4-5 area. Neuro General: patient oriented x3, gait normal and moves all extremities Assessment & Plan Assessment & Plan (1) Spinal stenosis: Code(s): M48.00 - Spinal stenosis, site unspecified Qualifiers: Spinal region: lumbar Neurogenic claudication status: without neurogenic claudication Qualified Code(s): M48.061 - Spinal stenosis, lumbar region without neurogenic claudication (2) Postlaminectomy syndrome: Code(s): M96.1 - Postlaminectomy syndrome, not elsewhere classified (3) Chronic pain syndrome: Code(s): G89.4 - Chronic pain syndrome (4) Chronic, continuous use of opioids: Code(s): F1.90 - Opioid use, unspecified, uncomplicated Plan Remi has shown accountability for his medication regimen and the pill count was accurate. Due to fishing trip he reports acute on chronic pain in the lower back. I recommended him un sates on the clock for 10-14 days ibuprofen 200 mg. He is compliant with his medication regimen. He denies constipation. He admits opioid medications help him to stay active perform better activities of daily living be better at social interactions. Will send in prescription for Oxycodone 10 mg TID for 30 days with an advanced date of 06/19/2023. Medications: Refilled oxycodone Partial fill per patient request. 10 mg PO Q8H PRN 90 tabs 0RF pain 30 days F1.90 - Opioid use, unspecified, uncomplicated, G89.4 - Chronic pain syndrome, M96.1 - Postlaminectomy syndrome, not elsewhere classified Coding Level of Care Code Est Pt Level 3 (37386) Diagnoses Spinal stenosis M48.061 Spinal region: lumbar Neurogenic claudication status: without neurogenic claudication Postlaminectomy syndrome M96.1 Chronic pain syndrome G89.4 Chronic, continuous use of opioids F11.90
[2023-06-16 10:04] VITALS: BP 130/80; PULSE 83; RESP 16; O2SAT 95; BMI 28.3
== END 2023-06-16 10:17 | disposition home or self-care (01) ==
PROVIDERS: PCP Internal Medicine; Visit Provider Anesthesiology
DX: M48.061 Spinal stenosis, lumbar region without neurogenic claudication (principal); M96.1 Postlaminectomy syndrome, not elsewhere classified; G89.4 Chronic pain syndrome; Z79.891 Long term (current) use of opiate analgesic
CPT/HCPCS: 99213

== ENCOUNTER → 2023-06-16 09:57 | Outpatient (BNVA) | payer OTHER, SELFPAY | PROVIDERS: PCP Internal Medicine; Visit Provider Anesthesiology | DX: G89.4 Chronic pain syndrome (principal); M96.1 Postlaminectomy syndrome, not elsewhere classified; M48.061 Spinal stenosis, lumbar region without neurogenic claudication; Z79.891 Long term (current) use of opiate analgesic | CPT/HCPCS: 99212 ==

== ENCOUNTER 2023-07-14 09:50 | Outpatient (AMB) | payer OTHER, SELFPAY ==
--- NOTE | 2023-07-14 09:55 | MHC.OFFVIS ---
Intake Vital Signs 07/14/23 10:00 Height 6 ft Weight 210 lb BMI 28.5 BP 138/60 Blood Pressure Location Lt brachial Position Sitting Respiration 18 Pulse 100 Pulse Source Pulse Oximeter Pulse Oximetry (%) 95 Oxygen Delivery Method Room Air Intake Visit Reasons: Pill count Intake Note: Patient comes in for pill count. Allergies No Known Allergies Allergy (Verified 07/14/23 10:06) HPI HPI Comments History of Present Illness Details Remi is a pleasant 67 year old male who is suffering from postlaminectomy syndrome.?He is here for a pill count. He is on chronic opioid program. He is supposed to have 15 pills in his possession and has 20 pills.?. This demonstrates a responsible attitude in regards to the opioid regimen. He states he has an increased ability to perform activities of daily living, interact socially and be more functional, with no noted side effects.? He denies constipation, he denies itching nausea and or vomiting.? He reports today pain 7-8 /10. He explained these pain increase to the fact that he went fishing and since then he has pain in the back is hurting him more. I recommended him to try NSAIDs on the clock not [id number] ibuprofen q.6 hours for the next 10-14 days and then stop. Denies constipation, sedation, nausea, pruritis, dizziness or urinary retention.? ?He received [employer] spinal cord stimulation in the past.? He reports that he is using spinal cord stimulator.? He has blueprint duplicator was replaced and now he is able to appropriately charge she has device. Prior: ? H/o multiple injections in [employer] [facility] in the lower back. He has a severe stenosis in L4-5 area due to postlaminectomy changes at that area. postlaminectomy syndrome, he has compression of cauda equina by MRI. lower back and mostly left leg pain all the way down to his calf. History of injury in 1986 history of laminectomy in 1986 no hardware in the back. ? He has since multiple injections, medication trials, and rounds of PT without benefit. He was referred to Neurosurgery. He saw Dr. Melgoza in 07/28/[address] Melgoza suggested conservative treatment including spinal cord stimulation, given that additional surgical intervention would not necessarily improve his symptoms.. [facility] Medical History Back pain with history of spinal surgery Chronic pain syndrome Chronic, continuous use of opioids Diabetes Heavy smoker HTN (hypertension) Numbness and tingling in both hands Postlaminectomy syndrome Spinal stenosis Social History Alcohol intake: current Alcohol intake frequency: a few times a week Alcohol type: beer Cigarettes Per Day: 30 Years Smoked: 50 Review of Systems Const All systems reviewed & are unremarkable except as noted in HPI and below Physical Exam Vital Signs: Last Vital Signs Pulse 100 07/14/23 10:00 Resp 18 07/14/23 10:00 BP 138/60 07/14/23 10:00 Pulse Ox 95 07/14/23 10:00 Oxygen Delivery Method Room Air 07/14/23 10:00 BMI result Body Mass Index 28.5 Const General: cooperative, comfortable, alert and well groomed Nutritional Appearance: obese Orientation/consciousness: patient oriented x3 HEENT Head: Yes normocephalic and Yes atraumatic Ears: hearing grossly normal bilaterally Neck Neck: Yes normal visual inspection and Yes no JVD Resp Effort & Inspection: normal respiratory effort, able to speak in complete sentences and no audible wheezes Cardio Jugular venous distension: no JVD Back/Spine/Pelvis Other: Tenderness of palpation on paraspinal spinal region lumbar spine. SLR is negative bilaterally, percussion is positive for pain in L3 L4-5 area. Neuro General: patient oriented x3, gait normal and moves all extremities Assessment & Plan Assessment & Plan (1) Spinal stenosis: Code(s): M48.00 - Spinal stenosis, site unspecified Qualifiers: Spinal region: lumbar Neurogenic claudication status: without neurogenic claudication Qualified Code(s): M48.061 - Spinal stenosis, lumbar region without neurogenic claudication (2) Postlaminectomy syndrome: Code(s): M96.1 - Postlaminectomy syndrome, not elsewhere classified (3) Chronic pain syndrome: Code(s): G89.4 - Chronic pain syndrome (4) Chronic, continuous use of opioids: Code(s): F11.90 - Opioid use, unspecified, uncomplicated Plan Remi has shown accountability for his medication regimen and the pill count was accurate. He is compliant with his medication regimen. He denies constipation. He admits opioid medications help him to stay active perform better activities of daily living be better at social interactions. Will send in prescription for Oxycodone 10 mg TID for 30 days with an advanced date of 07/19/2023. Medications: Refilled oxycodone Partial fill per patient request. 10 mg PO Q8H PRN 90 tabs 0RF pain 30 days F1.90 - Opioid use, unspecified, uncomplicated, G89.4 - Chronic pain syndrome, M96.1 - Postlaminectomy syndrome, not elsewhere classified Coding Level of Care Code Est Pt Level 3 (49058) Diagnoses Spinal stenosis of lumbar region without neurogenic claudication M48.061 Spinal region: lumbar Neurogenic claudication status: without neurogenic claudication Postlaminectomy syndrome M96.1 Chronic pain syndrome G89.4 Chronic, continuous use of opioids F190
[2023-07-14 10:00] VITALS: BP 138/60; PULSE 100; RESP 18; O2SAT 95; BMI 28.5
== END 2023-07-14 10:08 | disposition home or self-care (01) ==
PROVIDERS: PCP Internal Medicine; Visit Provider Anesthesiology
DX: G89.4 Chronic pain syndrome (principal); M48.061 Spinal stenosis, lumbar region without neurogenic claudication; M96.1 Postlaminectomy syndrome, not elsewhere classified; Z79.891 Long term (current) use of opiate analgesic
CPT/HCPCS: 99213

== ENCOUNTER → 2023-07-14 09:50 | Outpatient (BNVA) | payer OTHER, SELFPAY | PROVIDERS: PCP Internal Medicine; Visit Provider Anesthesiology | DX: G89.4 Chronic pain syndrome (principal); M48.061 Spinal stenosis, lumbar region without neurogenic claudication; M96.1 Postlaminectomy syndrome, not elsewhere classified; Z79.891 Long term (current) use of opiate analgesic | CPT/HCPCS: 99212 ==

== ENCOUNTER 2023-08-11 09:53 | Outpatient (AMB) | payer OTHER, SELFPAY ==
--- NOTE | 2023-08-11 10:06 | MHC.OFFVIS ---
Intake Vital Signs 08/11/23 10:18 Height 6 ft Weight 211 lb BMI 28.6 BP 142/60 H Blood Pressure Location Lt brachial Position Sitting Respiration 16 Pulse 88 Pulse Source Pulse Oximeter Pulse Oximetry (%) 94 Oxygen Delivery Method Room Air Intake Visit Reasons: PILL COUNT Intake Note: patient comes in for pill count to oxycodone tablets. Allergies No Known Allergies Allergy (Verified 08/11/23 10:19) HPI HPI Comments History of Present Illness Details Remi is a pleasant 67 year old male who is suffering from postlaminectomy syndrome.?He is here for a pill count. He is on chronic opioid program. He is supposed to have 24 pills in his possession and has 28.5 pills.?. This demonstrates a responsible attitude in regards to the opioid regimen. He states he has an increased ability to perform activities of daily living, interact socially and be more functional, with no noted side effects.? He denies constipation, he denies itching nausea and or vomiting.? He reports today pain 7.5 /10. Denies constipation, sedation, nausea, pruritis, dizziness or urinary retention.? ?He received [employer] spinal cord stimulation in the past.? He reports that he is using spinal cord stimulator.? He has corn lab technician was replaced and now he is able to appropriately charge she has device. Prior: ? H/o multiple injections in [employer] [facility] in the lower back. He has a severe stenosis in L4-5 area due to postlaminectomy changes at that area. postlaminectomy syndrome, he has compression of cauda equina by MRI. lower back and mostly left leg pain all the way down to his calf. History of injury in 1986 history of laminectomy in 1986 no hardware in the back. He has since multiple injections, medication trials, and rounds of PT without benefit. He was referred to Neurosurgery. He saw Dr. Melgoza in 07/28/[address] Melgoza suggested conservative treatment including spinal cord stimulation, given that additional surgical intervention would not necessarily improve his symptoms.. [facility] Medical History Back pain with history of spinal surgery Chronic pain syndrome Chronic, continuous use of opioids Diabetes Heavy smoker HTN (hypertension) Numbness and tingling in both hands Postlaminectomy syndrome Spinal stenosis Social History Alcohol intake: current Alcohol intake frequency: a few times a week Alcohol type: beer Cigarettes Per Day: 30 Years Smoked: 50 Review of Systems Const All systems reviewed & are unremarkable except as noted in HPI and below Physical Exam Vital Signs: Last Vital Signs Pulse 88 08/11/23 10:18 Resp 16 08/11/23 10:18 BP 142/60 H 08/11/23 10:18 Pulse Ox 94 08/11/23 10:18 Oxygen Delivery Method Room Air 08/11/23 10:18 BMI result Body Mass Index 28.6 Const General: cooperative, comfortable, alert and well groomed Nutritional Appearance: obese Orientation/consciousness: patient oriented x3 HEENT Head: Yes normocephalic and Yes atraumatic Ears: hearing grossly normal bilaterally Neck Neck: Yes normal visual inspection and Yes no JVD Resp Effort & Inspection: normal respiratory effort, able to speak in complete sentences and no audible wheezes Cardio Jugular venous distension: no JVD Back/Spine/Pelvis Other: Tenderness of palpation on paraspinal spinal region lumbar spine. SLR is negative bilaterally, percussion is positive for pain in L3 L4-5 area. Neuro General: patient oriented x3, gait normal and moves all extremities Assessment & Plan Assessment & Plan (1) Spinal stenosis: Code(s): M48.00 - Spinal stenosis, site unspecified Qualifiers: Spinal region: lumbar Neurogenic claudication status: without neurogenic claudication Qualified Code(s): M48.061 - Spinal stenosis, lumbar region without neurogenic claudication (2) Postlaminectomy syndrome: Code(s): M96.1 - Postlaminectomy syndrome, not elsewhere classified (3) Chronic pain syndrome: Code(s): G89.4 - Chronic pain syndrome (4) Chronic, continuous use of opioids: Code(s): F11.90 - Opioid use, unspecified, uncomplicated Plan Remi has shown accountability for his medication regimen and the pill count was accurate. He is compliant with his medication regimen. He denies constipation. He admits opioid medications help him to stay active perform better activities of daily living be better at social interactions. Will send in prescription for Oxycodone 10 mg TID for 30 days with an advanced date of 08/19/2023 Medications: Refilled oxycodone Partial fill per patient request. 10 mg PO Q8H PRN 90 tabs 0RF pain 30 days F1. - Opioid use, unspecified, uncomplicated, G89.4 - Chronic pain syndrome, M96.1 - Postlaminectomy syndrome, not elsewhere classified Coding Level of Care Code Est Pt Level 3 (71070) Diagnoses Spinal stenosis of lumbar region without neurogenic claudication M48.061 Spinal region: lumbar Neurogenic claudication status: without neurogenic claudication Postlaminectomy syndrome M96.1 Chronic pain syndrome G89.4 Chronic, continuous use of opioids F190
[2023-08-11 10:18] VITALS: BP 142/60; PULSE 88; RESP 16; O2SAT 94; BMI 28.6
== END 2023-08-11 10:21 | disposition home or self-care (01) ==
PROVIDERS: PCP Internal Medicine; Visit Provider Anesthesiology
DX: M48.061 Spinal stenosis, lumbar region without neurogenic claudication (principal); M96.1 Postlaminectomy syndrome, not elsewhere classified; G89.4 Chronic pain syndrome; F11.90 Opioid use, unspecified, uncomplicated
CPT/HCPCS: 99213

== ENCOUNTER → 2023-08-11 09:53 | Outpatient (BNVA) | payer OTHER, SELFPAY | PROVIDERS: PCP Internal Medicine; Visit Provider Anesthesiology | DX: M96.1 Postlaminectomy syndrome, not elsewhere classified (principal); M48.061 Spinal stenosis, lumbar region without neurogenic claudication; G89.4 Chronic pain syndrome; Z79.891 Long term (current) use of opiate analgesic | CPT/HCPCS: 99212 ==

== ENCOUNTER 2023-09-08 09:59 | Outpatient (AMB) | payer OTHER, SELFPAY ==
--- NOTE | 2023-09-08 10:06 | MHC.OFFVIS ---
Intake Vital Signs 09/08/23 10:08 Height 6 ft Weight 210 lb 9 oz BMI 28.6 BP 191/88 H Blood Pressure Location Rt brachial Position Sitting Pulse 89 Pulse Source Pulse Oximeter Pulse Oximetry (%) 97 Oxygen Delivery Method Room Air Intake Visit Reasons: PILL COUNT/CONFIRMED Intake Note: Remi should have 30 tablets of oxycodone and presented with 34 tablets which he last took today 09/08/23 at 9:30am. Pain today 05/29 Office Professionals Required: No Accompanied by: Self / Same As Patient Allergies No Known Allergies Allergy (Verified 09/08/23 10:08) HPI PILL COUNT/CONFIRMED HPI Details 68-year-old male who presents today to the office for a pill count. 30 pills were expected, and 34 pills were presented. The patient has been compliant with his medication. He has difficulty walking, and he reports pain, which was not resolved by the SCS implant. He received [employer] spinal cord stimulation in the past. He has been using a spinal cord stimulator for the past two years. He notices pins and needle sensations once the device was off. He had back surgery in 1986 and 1999. He had attempted hip fusion surgery in the past. He had hip replacement surgery. He had a work-related hernia that was repaired. His most recent MRI scan was in 2019. [facility] Medical History Back pain with history of spinal surgery Chronic pain syndrome Chronic, continuous use of opioids Diabetes Heavy smoker HTN (hypertension) Numbness and tingling in both hands Postlaminectomy syndrome Spinal stenosis Alcohol intake: current Alcohol intake frequency: a few times a week Alcohol type: beer Cigarettes Per Day: 30 Years Smoked: 50 Review of Systems Const All systems reviewed & are unremarkable except as noted in HPI and below Physical Exam Vital Signs: Last Vital Signs Pulse 89 09/08/23 10:08 BP 191/88 H 09/08/23 10:08 Pulse Ox 97 09/08/23 10:08 Oxygen Delivery Method Room Air 09/08/23 10:08 BMI result Body Mass Index 28.6 General: Appears afebrile. Alert and oriented. Mood and affect appropriate. Follows and participates in conversation appropriately. Respiratory effort is unlabored. Able to transition from sit to stand unassisted. Ambulates with bilaterally normal heel strike and toe off. Results Reviewed Results Reviewed: No imaging is available for review. Assessment & Plan Assessment & Plan (1) Postlaminectomy syndrome: Code(s): M96.1 - Postlaminectomy syndrome, not elsewhere classified (2) Spinal stenosis: Code(s): M48.00 - Spinal stenosis, site unspecified Qualifiers: Neurogenic claudication status: without neurogenic claudication Spinal region: lumbar Qualified Code(s): M48.061 - Spinal stenosis, lumbar region without neurogenic claudication Plan Pill count was consistent. A refill of Oxycodone 10 mg T.I.D was provided to the patient. I ordered an MRI scan of the lumbar spine for further evaluation. The patient can follow up with us or Dr. Bertrand for an MRI scan result review. He continues to have significant left lower extremity sciatica symptoms and has compressive pathology on his last can from 2019. I would like him to be evaluated for a limited foraminotomy/decompression following the new MRI. Scribed for Dr. García by Frankie Moreno, medical transcriptionist, on 09/08/2023. I, Dr. García, have personally reviewed and agree with the information entered by the scribe. Orders: Orders MR lumbar spine wo con 09/08/23 M48.00 - Spinal stenosis, site unspecified, M96.1 - Postlaminectomy syndrome, not elsewhere classified Medications: Refilled oxycodone Partial fill per patient request. 10 mg PO Q8H PRN 90 tabs 0RF pain 30 days F11.90 - Opioid use, unspecified, uncomplicated, G89.4 - Chronic pain syndrome, M96.1 - Postlaminectomy syndrome, not elsewhere classified Coding Level of Care Code Est Pt Level 3 (36736) Diagnoses Postlaminectomy syndrome M96.1 Spinal stenosis of lumbar region without neurogenic claudication M48.061 Neurogenic claudication status: without neurogenic claudication Spinal region: lumbar
[2023-09-08 10:08] VITALS: BP 191/88; PULSE 89; O2SAT 97; BMI 28.6
== END 2023-09-08 10:37 | disposition home or self-care (01) ==
PROVIDERS: PCP Internal Medicine; Visit Provider Internal Medicine
DX: M96.1 Postlaminectomy syndrome, not elsewhere classified (principal); M48.061 Spinal stenosis, lumbar region without neurogenic claudication
CPT/HCPCS: 99213

== ENCOUNTER → 2023-09-08 09:59 | Outpatient (BNVA) | payer OTHER, SELFPAY | PROVIDERS: PCP Internal Medicine; Visit Provider Internal Medicine | DX: M96.1 Postlaminectomy syndrome, not elsewhere classified (principal); M48.061 Spinal stenosis, lumbar region without neurogenic claudication; Z79.891 Long term (current) use of opiate analgesic | CPT/HCPCS: 99212 ==

== ENCOUNTER 2023-10-06 10:00 | Outpatient (AMB) | payer OTHER, SELFPAY ==
--- NOTE | 2023-10-06 10:09 | MHC.OFFVIS ---
Intake Vital Signs 10/06/23 10:18 Height 6 ft Weight 213 lb BMI 28.9 BP 128/88 Blood Pressure Location Lt brachial Position Sitting Respiration 16 Pulse 102 H Pulse Source Pulse Oximeter Pulse Oximetry (%) 94 Oxygen Delivery Method Room Air Intake Visit Reasons: Medication Count/confirmed Intake Note: patient comes in for pill to oxycodone 10 mg tablet. He reports pain level of 7.5/10. Allergies No Known Allergies Allergy (Verified 10/06/23 10:19) HPI HPI Comments History of Present Illness Details Remi is a pleasant 67 year old male who is suffering from postlaminectomy syndrome.?He is here for a pill count. He is on chronic opioid program. He is supposed to have 51 pills in his possession and has 54 pills.?. This demonstrates a responsible attitude to opioid medications.. His states that the pain is 7.5 today more severe than usual because of the weather. He does not request escalation of the opioid medications today. He denies side effects of the opioid medications, denies constipation, he denies itching nausea and or vomiting.? Denies constipation, sedation, nausea, pruritis, dizziness or urinary retention.? ?He received [employer] spinal cord stimulation in the past.? He reports that he is using spinal cord stimulator.? He has tunnel heading inspector was replaced and now he is able to appropriately charge she has device. Prior: ? H/o multiple injections in [facility] in the lower back. He has a severe stenosis in L4-5 area due to postlaminectomy changes at that area. postlaminectomy syndrome, he has compression of cauda equina by MRI. lower back and mostly left leg pain all the way down to his calf. History of injury in 1986 history of laminectomy in 1986 no hardware in the back. He has since multiple injections, medication trials, and rounds of PT without benefit. He was referred to Neurosurgery. He saw Dr. Melgoza in 07/28/[address] Melgoza suggested conservative treatment including spinal cord stimulation, given that additional surgical intervention would not necessarily improve his symptoms.. [facility] Medical History Back pain with history of spinal surgery Chronic pain syndrome Chronic, continuous use of opioids Diabetes Heavy smoker HTN (hypertension) Numbness and tingling in both hands Postlaminectomy syndrome Spinal stenosis Social History Alcohol intake: current Alcohol intake frequency: a few times a week Alcohol type: beer Comment: Tylenol 975 mg given at 1115 Cigarettes Per Day: 30 Years Smoked: 50 Review of Systems Const All systems reviewed & are unremarkable except as noted in HPI and below Physical Exam Vital Signs: Last Vital Signs Pulse 102 H 10/06/23 10:18 Resp 16 10/06/23 10:18 BP 128/88 10/06/23 10:18 Pulse Ox 94 10/06/23 10:18 Oxygen Delivery Method Room Air 10/06/23 10:18 BMI result Body Mass Index 28.9 Const General: cooperative, comfortable, alert and well groomed Nutritional Appearance: obese Orientation/consciousness: patient oriented x3 HEENT Head: Yes normocephalic and Yes atraumatic Ears: hearing grossly normal bilaterally Neck Neck: Yes normal visual inspection and Yes no JVD Resp Effort & Inspection: normal respiratory effort, able to speak in complete sentences and no audible wheezes Cardio Jugular venous distension: no JVD Back/Spine/Pelvis Other: Tenderness of palpation on paraspinal spinal region lumbar spine. SLR is negative bilaterally, percussion is positive for pain in L3 L4-5 area. Neuro General: patient oriented x3, gait normal and moves all extremities Assessment & Plan Assessment & Plan (1) Spinal stenosis: Code(s): M48.00 - Spinal stenosis, site unspecified Qualifiers: Spinal region: lumbar Neurogenic claudication status: without neurogenic claudication Qualified Code(s): M48.061 - Spinal stenosis, lumbar region without neurogenic claudication (2) Postlaminectomy syndrome: Code(s): M96.1 - Postlaminectomy syndrome, not elsewhere classified (3) Chronic pain syndrome: Code(s): G89.4 - Chronic pain syndrome (4) Chronic, continuous use of opioids: Code(s): F11.90 - Opioid use, unspecified, uncomplicated Plan Remi has shown accountability for his medication regimen and the pill count was accurate. He is compliant with his medication regimen. He denies constipation. He admits opioid medications help him to stay active perform better activities of daily living be better at social interactions. Will send in prescription for Oxycodone 10 mg TID for 30 days with an advanced date of 10/23/23 Medications: Refilled oxycodone Partial fill per patient request. 10 mg PO Q8H 30 days PRN 90 tabs 0RF pain F11.90 - Opioid use, unspecified, uncomplicated, G89.4 - Chronic pain syndrome, M96.1 - Postlaminectomy syndrome, not elsewhere classified Coding Level of Care Code Est Pt Level 3 (89334) Diagnoses Spinal stenosis of lumbar region without neurogenic claudication M48.061 Spinal region: lumbar Neurogenic claudication status: without neurogenic claudication Postlaminectomy syndrome M96.1 Chronic pain syndrome G89.4 Chronic, continuous use of opioids F11.90
[2023-10-06 10:18] VITALS: BP 128/88; PULSE 102; RESP 16; O2SAT 94; BMI 28.9
== END 2023-10-06 10:21 | disposition home or self-care (01) ==
PROVIDERS: PCP Internal Medicine; Visit Provider Anesthesiology
DX: G89.4 Chronic pain syndrome (principal); M48.061 Spinal stenosis, lumbar region without neurogenic claudication; M96.1 Postlaminectomy syndrome, not elsewhere classified; Z79.891 Long term (current) use of opiate analgesic
CPT/HCPCS: 99213

== ENCOUNTER → 2023-10-06 10:00 | Outpatient (BNVA) | payer OTHER, SELFPAY | PROVIDERS: PCP Internal Medicine; Visit Provider Anesthesiology | DX: M96.1 Postlaminectomy syndrome, not elsewhere classified (principal); M48.061 Spinal stenosis, lumbar region without neurogenic claudication; G89.4 Chronic pain syndrome; Z79.891 Long term (current) use of opiate analgesic | CPT/HCPCS: 99212 ==

== ENCOUNTER 2023-11-05 10:47 | Outpatient (AMB) | payer OTHER, SELFPAY ==
--- NOTE | 2023-11-05 10:52 | A.OFFVIS_ITS ---
Intake Vital Signs 11/05/23 11:06 Height 6 ft Weight 210 lb 4 oz BMI 28.5 BP 144/84 H Blood Pressure Location Lt brachial Position Sitting Respiration 16 Pulse 99 Pulse Source Pulse Oximeter Pulse Oximetry (%) 97 Oxygen Delivery Method Room Air Intake Visit Reasons: PILL COUNT/lvm Intake Note: Patient comes in for pill count to Oxycodone 10 mg tablets. Reports pain 7.5/10 Allergies No Known Allergies Allergy (Verified 10/06/23 10:19) HPI HPI Comments History of Present Illness Details Remi is a pleasant 67 year old male who is suffering from postlaminectomy syndrome.?He is here for a pill count. He is on chronic opioid program. He is supposed to have 51 pills in his possession and has 54 pills.?. This demonstrates a responsible attitude to opioid medications.. His pain is 7.5 today and he relates the elevated level of pain to detrimental weather. He keeps charging his [employer] spinal cord stimulator. He reports that sometimes he feels that [employer] stimulation is too high and he reports painful sensation with stimulation. I suggested that he would speak with [employer] representatives and try different programming and change of amplitude however patient refused. Denies constipation, sedation, nausea, pruritis, dizziness or urinary retention.? ?He received [employer] spinal cord stimulation in the past.? He reports that he is using spinal cord stimulator.? He has victim advocate was replaced and now he is able to appropriately charge she has device. Prior: ? H/o multiple injections in [facility] in the lower back. He has a severe stenosis in L4-5 area due to postlaminectomy changes at that area. postlaminectomy syndrome, he has compression of cauda equina by MRI. lower back and mostly left leg pain all the way down to his calf. History of injury in 1986 history of laminectomy in 1986 no hardware in the back. He has since multiple injections, medication trials, and rounds of PT without benefit. He was referred to Neurosurgery. He saw Dr. Melgoza in 07/28/[address] Melgoza suggested conservative treatment including spinal cord stimulation, given that additional surgical intervention would not necessarily improve his symptoms.. [facility] Medical History Back pain with history of spinal surgery Chronic pain syndrome Chronic, continuous use of opioids Diabetes Heavy smoker HTN (hypertension) Numbness and tingling in both hands Postlaminectomy syndrome Spinal stenosis Social History Alcohol intake: current Alcohol intake frequency: a few times a week Alcohol type: beer Comment: Tylenol 975 mg given at 1115 Cigarettes Per Day: 30 Years Smoked: 50 Review of Systems Const All systems reviewed & are unremarkable except as noted in HPI and below Physical Exam Vital Signs: Last Vital Signs Pulse 99 11/05/23 11:06 Resp 16 11/05/23 11:06 BP 144/84 H 11/05/23 11:06 Pulse Ox 97 11/05/23 11:06 Oxygen Delivery Method Room Air 11/05/23 11:06 BMI result Body Mass Index 28.5 Const General: cooperative, comfortable, alert and well groomed Nutritional Appearance: obese Orientation/consciousness: patient oriented x3 HEENT Head: Yes normocephalic and Yes atraumatic Ears: hearing grossly normal bilaterally Neck Neck: Yes normal visual inspection and Yes no JVD Resp Effort & Inspection: normal respiratory effort, able to speak in complete sentences and no audible wheezes Cardio Jugular venous distension: no JVD Back/Spine/Pelvis Other: Tenderness of palpation on paraspinal spinal region lumbar spine. SLR is negative bilaterally, percussion is positive for pain in L3 L4-5 area. Neuro General: patient oriented x3, gait normal and moves all extremities Assessment & Plan Assessment & Plan (1) Spinal stenosis: Code(s): M48.00 - Spinal stenosis, site unspecified Qualifiers: Spinal region: lumbar Neurogenic claudication status: without neurogenic claudication Qualified Code(s): M48.061 - Spinal stenosis, lumbar region without neurogenic claudication (2) Postlaminectomy syndrome: Code(s): M96.1 - Postlaminectomy syndrome, not elsewhere classified (3) Chronic pain syndrome: Code(s): G89.4 - Chronic pain syndrome (4) Chronic, continuous use of opioids: Code(s): F11.90 - Opioid use, unspecified, uncomplicated Plan Remi has shown accountability for his medication regimen and the pill count was accurate. He is compliant with his medication regimen. He denies constipation. He admits opioid medications help him to stay active perform better activities of daily living be better at social interactions. Will send in prescription for Oxycodone 10 mg TID for 30 days with an advanced date of 11/22/2023 Next appointment for the pill count in 1 month. Medications: Refilled oxycodone Partial fill per patient request. 10 mg PO Q8H PRN 90 tabs 0RF pain 30 days F11.90 - Opioid use, unspecified, uncomplicated, G89.4 - Chronic pain syndrome, M96.1 - Postlaminectomy syndrome, not elsewhere classified Coding Level of Care Code Est Pt Level 3 (54449) Diagnoses Spinal stenosis of lumbar region without neurogenic claudication M48.061 Spinal region: lumbar Neurogenic claudication status: without neurogenic claudication Postlaminectomy syndrome M96.1 Chronic pain syndrome G89.4 Chronic, continuous use of opioids F11.90
[2023-11-05 11:06] VITALS: BP 144/84; PULSE 99; RESP 16; O2SAT 97; BMI 28.5
== END 2023-11-05 11:10 | disposition home or self-care (01) ==
PROVIDERS: PCP Internal Medicine; Visit Provider Anesthesiology
DX: G89.4 Chronic pain syndrome (principal); M48.061 Spinal stenosis, lumbar region without neurogenic claudication; M96.1 Postlaminectomy syndrome, not elsewhere classified; Z79.891 Long term (current) use of opiate analgesic
CPT/HCPCS: 99213

== ENCOUNTER → 2023-11-05 10:47 | Outpatient (BNVA) | payer OTHER, SELFPAY | PROVIDERS: PCP Internal Medicine; Visit Provider Anesthesiology | DX: M48.061 Spinal stenosis, lumbar region without neurogenic claudication (principal); M96.1 Postlaminectomy syndrome, not elsewhere classified; G89.4 Chronic pain syndrome; Z79.891 Long term (current) use of opiate analgesic | CPT/HCPCS: 99212 ==

== ENCOUNTER 2023-12-03 11:23 | Outpatient (AMB) | payer OTHER, SELFPAY ==
--- NOTE | 2023-12-03 11:36 | MHC.OFFVIS ---
Intake Vital Signs 12/03/23 11:37 Height 6 ft Weight 211 lb 8 oz BMI 28.7 BP 148/74 H Blood Pressure Location Lt brachial Position Sitting Respiration 16 Pulse 102 H Pulse Source Pulse Oximeter Pulse Oximetry (%) 93 Oxygen Delivery Method Room Air Intake Visit Reasons: Pill count Intake Note: Patient came in for pill count. Reports pain 6.5/10. Allergies No Known Allergies Allergy (Verified 12/03/23 11:36) HPI HPI Comments History of Present Illness Details Remi is a pleasant 67 year old male who is suffering from postlaminectomy syndrome.?He is here for a pill count. He is on chronic opioid program. He is supposed to have 57 pills in his possession and has 60 pills.?. This demonstrates a responsible attitude to opioid medications.. His pain is 7.5 today and he relates the elevated level of pain to detrimental weather. He keeps charging his [employer] spinal cord stimulator. Denies constipation, sedation, nausea, pruritis, dizziness or urinary retention.? ?He received [employer] spinal cord stimulation in the past.? He reports that he is using spinal cord stimulator.? He has probation manager was replaced and now he is able to appropriately charge she has device. Acute issue he reported today. About 1 week ago he was trying to reach under the car seat in his car and felt severe pain in between his shoulder blades. This is acute pain. Most likely myofascial in nature. I recommended him to start ibuprofen 200 mg on the clock every 6 hours for 7 days and then stop. He will report about this pain next time he is here. Prior: ? H/o multiple injections in [facility] in the lower back. He has a severe stenosis in L4-5 area due to postlaminectomy changes at that area. postlaminectomy syndrome, he has compression of cauda equina by MRI. lower back and mostly left leg pain all the way down to his calf. History of injury in 1986 history of laminectomy in 1986 no hardware in the back. He has since multiple injections, medication trials, and rounds of PT without benefit. He was referred to Neurosurgery. He saw Dr. Melgoza in 07/28/[address] Melgoza suggested conservative treatment including spinal cord stimulation, given that additional surgical intervention would not necessarily improve his symptoms.. [facility] Medical History Back pain with history of spinal surgery Chronic pain syndrome Chronic, continuous use of opioids Diabetes Heavy smoker HTN (hypertension) Numbness and tingling in both hands Postlaminectomy syndrome Spinal stenosis Social History Alcohol intake: current Alcohol intake frequency: a few times a week Alcohol type: beer Comment: Tylenol 975 mg given at 1115 Cigarettes Per Day: 30 Years Smoked: 50 Review of Systems Const All systems reviewed & are unremarkable except as noted in HPI and below Physical Exam Vital Signs: Last Vital Signs Pulse 102 H 12/03/23 11:37 Resp 16 12/03/23 11:37 BP 148/74 H 12/03/23 11:37 Pulse Ox 93 12/03/23 11:37 Oxygen Delivery Method Room Air 12/03/23 11:37 BMI result Body Mass Index 28.7 Const General: cooperative, comfortable, alert and well groomed Nutritional Appearance: obese Orientation/consciousness: patient oriented x3 HEENT Head: Yes normocephalic and Yes atraumatic Ears: hearing grossly normal bilaterally Neck Neck: Yes normal visual inspection and Yes no JVD Chest Other: Tenderness on palpation between the shoulder blades Resp Effort & Inspection: normal respiratory effort, able to speak in complete sentences and no audible wheezes Cardio Jugular venous distension: no JVD Back/Spine/Pelvis Other: Tenderness of palpation on paraspinal spinal region lumbar spine. SLR is negative bilaterally, percussion is positive for pain in L3 L4-5 area. Neuro General: patient oriented x3, gait normal and moves all extremities Assessment & Plan Assessment & Plan (1) Spinal stenosis: Code(s): M48.00 - Spinal stenosis, site unspecified Qualifiers: Neurogenic claudication status: without neurogenic claudication Spinal region: lumbar Qualified Code(s): M48.061 - Spinal stenosis, lumbar region without neurogenic claudication (2) Postlaminectomy syndrome: Code(s): M96.1 - Postlaminectomy syndrome, not elsewhere classified (3) Chronic pain syndrome: Code(s): G89.4 - Chronic pain syndrome (4) Chronic, continuous use of opioids: Code(s): F11.90 - Opioid use, unspecified, uncomplicated Plan Remi has shown accountability for his medication regimen and the pill count was accurate. He is compliant with his medication regimen. He denies constipation. He admits opioid medications help him to stay active perform better activities of daily living be better at social interactions. Will send in prescription for Oxycodone 10 mg TID for 30 days with an advanced date of 11/22/2023 As of his pain between the shoulder blades I recommended him ibuprofen 200 mg q.6 hours not p.r.n. but rather on the clock for 7 days and then stop. He reports the pain level next time he is here. If this is not helpful I will try trigger point injections for this patient. Medications: Refilled oxycodone Partial fill per patient request. 10 mg PO Q8H PRN 90 tabs 0RF pain 30 days F11.90 - Opioid use, unspecified, uncomplicated, G89.4 - Chronic pain syndrome, M96.1 - Postlaminectomy syndrome, not elsewhere classified Patient Instructions: I here by testify that I spent 31 minute in conversation with this patient as well as planning his care and organizing his note. Coding Level of Care Code Est Pt Level 3 (89533) Diagnoses Spinal stenosis of lumbar region without neurogenic claudication M48.061 Neurogenic claudication status: without neurogenic claudication Spinal region: lumbar Postlaminectomy syndrome M96.1 Chronic pain syndrome G89.4 Chronic, continuous use of opioids F11.90
[2023-12-03 11:37] VITALS: BP 148/74; PULSE 102; RESP 16; O2SAT 93; BMI 28.7
== END 2023-12-03 11:43 | disposition home or self-care (01) ==
PROVIDERS: PCP Internal Medicine; Visit Provider Anesthesiology
DX: M48.061 Spinal stenosis, lumbar region without neurogenic claudication (principal); M96.1 Postlaminectomy syndrome, not elsewhere classified; G89.4 Chronic pain syndrome; Z79.891 Long term (current) use of opiate analgesic
CPT/HCPCS: 99213

== ENCOUNTER → 2023-12-03 11:23 | Outpatient (BNVA) | payer OTHER, SELFPAY | PROVIDERS: PCP Internal Medicine; Visit Provider Anesthesiology | DX: G89.4 Chronic pain syndrome (principal); M48.061 Spinal stenosis, lumbar region without neurogenic claudication; M96.1 Postlaminectomy syndrome, not elsewhere classified; Z79.891 Long term (current) use of opiate analgesic | CPT/HCPCS: 99212 ==

== ENCOUNTER 2024-01-01 10:37 | Outpatient (AMB) | payer OTHER, SELFPAY ==
--- NOTE | 2024-01-01 10:37 | MHC.OFFVIS ---
Intake Vital Signs 01/01/24 10:46 Height 6 ft Weight 200 lb BMI 27.1 BP 134/82 Blood Pressure Location Lt brachial Position Sitting Respiration 16 Pulse 105 H Pulse Source Pulse Oximeter Pulse Oximetry (%) 94 Oxygen Delivery Method Room Air Intake Visit Reasons: PILL COUNT Intake Note: Patient comes in for pill count. Reports pain 6/10. Allergies No Known Allergies Allergy (Verified 01/01/24 10:46) HPI HPI Comments History of Present Illness Details Remi is a pleasant 67 year old male who is suffering from postlaminectomy syndrome.?He is here for a pill count. He is on chronic opioid program. He is supposed to have 60 pills in his possession and has 60 pills.?. This demonstrates a responsible attitude to opioid medications.. He reports his pain 6.0 today this is better than last time. He keeps charging his [employer] spinal cord stimulator. He reports that it helps his pain moderately.?He received [employer] spinal cord stimulation in the past.? He reports that he is using spinal cord stimulator.? He has acoustic intelligence specialist was replaced and now he is able to appropriately charge she has device. Denies constipation, sedation, nausea, pruritis, dizziness or urinary retention.? He did not report any pain between his shoulder blades today. Prior: ? H/o multiple injections in [facility] in the lower back. He has a severe stenosis in L4-5 area due to postlaminectomy changes at that area. postlaminectomy syndrome, he has compression of cauda equina by MRI. lower back and mostly left leg pain all the way down to his calf. History of injury in 1986 history of laminectomy in 1986 no hardware in the back. He has since multiple injections, medication trials, and rounds of PT without benefit. He was referred to Neurosurgery. He saw Dr. Melgoza in 07/28/[address] Melgoza suggested conservative treatment including spinal cord stimulation, given that additional surgical intervention would not necessarily improve his symptoms.. [facility] Medical History Back pain with history of spinal surgery Chronic pain syndrome Chronic, continuous use of opioids Diabetes Heavy smoker HTN (hypertension) Numbness and tingling in both hands Postlaminectomy syndrome Spinal stenosis Social History Alcohol intake: current Alcohol intake frequency: a few times a week Alcohol type: beer Comment: Tylenol 975 mg given at 1115 Cigarettes Per Day: 30 Years Smoked: 50 Review of Systems Const All systems reviewed & are unremarkable except as noted in HPI and below Physical Exam Vital Signs: Last Vital Signs Pulse 105 H 01/01/24 10:46 Resp 16 01/01/24 10:46 BP 134/82 01/01/24 10:46 Pulse Ox 94 01/01/24 10:46 Oxygen Delivery Method Room Air 01/01/24 10:46 BMI result Body Mass Index 27.1 Const General: cooperative, comfortable, alert and well groomed Nutritional Appearance: obese Orientation/consciousness: patient oriented x3 HEENT Head: Yes normocephalic and Yes atraumatic Ears: hearing grossly normal bilaterally Neck Neck: Yes normal visual inspection and Yes no JVD Chest Other: Tenderness on palpation between the shoulder blades Resp Effort & Inspection: normal respiratory effort, able to speak in complete sentences and no audible wheezes Cardio Jugular venous distension: no JVD Back/Spine/Pelvis Other: Tenderness of palpation on paraspinal spinal region lumbar spine. SLR is negative bilaterally, percussion is positive for pain in L3 L4-5 area. Neuro General: patient oriented x3, gait normal and moves all extremities Assessment & Plan Assessment & Plan (1) Spinal stenosis: Code(s): M48.00 - Spinal stenosis, site unspecified Qualifiers: Neurogenic claudication status: without neurogenic claudication Spinal region: lumbar Qualified Code(s): M48.061 - Spinal stenosis, lumbar region without neurogenic claudication (2) Postlaminectomy syndrome: Code(s): M96.1 - Postlaminectomy syndrome, not elsewhere classified (3) Chronic pain syndrome: Code(s): G89.4 - Chronic pain syndrome (4) Chronic, continuous use of opioids: Code(s): F11.90 - Opioid use, unspecified, uncomplicated Plan Remi has shown accountability for his medication regimen and the pill count was accurate. He is compliant with his medication regimen. He denies constipation. He admits opioid medications help him to stay active perform better activities of daily living be better at social interactions. Will send in prescription for Oxycodone 10 mg TID for 30 days with an advanced date of 01/21/2024 He is naloxone I will refill his naloxone as of today 01/01/2024 Medications: New naloxone 4 mg/actuation spray 1 dose into ONE nostril; alternate nostrils w each dose until help arrives 4 mg intranasal Q3M 1 day PRN 2 ea 0RF opioid overdose Refilled oxycodone Partial fill per patient request. 10 mg PO Q8H 30 days PRN 90 tabs 0RF pain F11.90 - Opioid use, unspecified, uncomplicated, G89.4 - Chronic pain syndrome, M96.1 - Postlaminectomy syndrome, not elsewhere classified Coding Level of Care Code Est Pt Level 3 (36029) Diagnoses Spinal stenosis of lumbar region without neurogenic claudication M48.061 Neurogenic claudication status: without neurogenic claudication Spinal region: lumbar Postlaminectomy syndrome M96.1 Chronic pain syndrome G89.4 Chronic, continuous use of opioids F11.90
[2024-01-01 10:46] VITALS: BP 134/82; PULSE 105; RESP 16; O2SAT 94; BMI 27.1
== END 2024-01-01 11:08 | disposition home or self-care (01) ==
PROVIDERS: PCP Internal Medicine; Visit Provider Anesthesiology
DX: G89.4 Chronic pain syndrome (principal); M48.061 Spinal stenosis, lumbar region without neurogenic claudication; M96.1 Postlaminectomy syndrome, not elsewhere classified; Z79.891 Long term (current) use of opiate analgesic
CPT/HCPCS: 99213

== ENCOUNTER → 2024-01-01 10:37 | Outpatient (BNVA) | payer OTHER, SELFPAY | PROVIDERS: PCP Internal Medicine; Visit Provider Anesthesiology | DX: M96.1 Postlaminectomy syndrome, not elsewhere classified (principal); M48.061 Spinal stenosis, lumbar region without neurogenic claudication; G89.4 Chronic pain syndrome; Z79.891 Long term (current) use of opiate analgesic | CPT/HCPCS: 99212 ==